=== PATIENT | female | born 1975 | race Caucasian/White ===

== ENCOUNTER 2023-02-03 08:45 | Outpatient (CLI) | payer OTHER, SELFPAY ==
[2023-02-03 08:56] LABS: Bacteria Urine Few; Mucus Urine Few; RBC Urine 0-2 (0-2); Squamous Epithelial Cell Urine Moderate (None-Few)
== END 2023-02-03 08:46 | disposition home or self-care (01) ==
PROVIDERS: PCP Physician Assistant Medical; Visit Provider Registered Nurse
DX: R30.0 Dysuria (principal)
CPT/HCPCS: 81015; 87086

== ENCOUNTER 2024-02-05 13:29 | Emergency (ER) | payer BC, SELFPAY ==
[2024-02-05 13:51] VITALS: BP 103/70; PULSE 67; RESP 18; TEMP 35.8; O2SAT 100; BMI 24.1
--- NOTE | 2024-02-05 14:11 | CRLHL7_ITS ---
For Patients: As a result of the Century Cures Act, medical imaging exams and procedure reports are released immediately into your electronic medical record. You may view this report before your referring provider. If you have questions, please contact your health care provider. INDICATION: Left lower quadrant abdomen and flank pain. TECHNIQUE: CT abdomen and pelvis acquired with 100 cc Omnipaque 350 IV contrast. COMPARISON: None. FINDINGS: Lower chest: Small hiatal hernia. Liver: A small hemangioma is in the right lobe. Otherwise unremarkable. Gallbladder and bile ducts: Unremarkable. No stones or inflammation. No biliary dilatation. Pancreas: Unremarkable. No mass or inflammation. Spleen: Unremarkable. Normal in size. No masses. Adrenal glands: Unremarkable. No nodules. Kidneys: Small 2 mm stone at the left ureterovesical junction on series 2, image 113 is causing mild hydronephrosis. No other stones. A benign-appearing cyst is in the right kidney. GI tract: Unremarkable. Normal in caliber. No sign of mass or inflammation. Normal appendix. Vasculature: Abdominal aorta is normal in caliber. Mesenteric arteries are patent. Lymph nodes: No lymphadenopathy. Peritoneum/Abdominal Wall: Unremarkable. No sign of mass or infiltration. No free air or significant free fluid. Pelvis: Unremarkable. Bones: Unremarkable for age. IMPRESSION: 2 mm stone at the left UVJ causing mild hydronephrosis. Please note that all CT scans at this facility use dose modulation, iterative reconstruction, and/or weight-based dosing when appropriate to reduce radiation dose to as low as reasonably achievable. Dictated by David Clayton MD @ 02/05/2024 4:32:02 PM (Electronically Signed)
[2024-02-05 14:14] LABS: Basophils Percent Auto 0.2 % (0.0-3.0); Eosinophils Percent Auto 0.2 % (0.0-7.0); Hematocrit 39.5 % (33.0-51.0); Hemoglobin* 13.3 gm/dL (12.0-16.0); Immature Granulocytes Pct Auto 0.3 %; Lymphocytes Percent Auto 9.9 % (20-44); Mean Corpuscular HGB Conc 34 gm/dL (32-36); Mean Corpuscular Hemoglobin 27 pg (26-34); Mean Corpuscular Volume 81 fL (80-100); Monocytes Percent Auto 4.5 % (0.0-11.0); Neutrophils Percent Auto 84.9 % (42.0-72.0); Platelet Count* 226 K/uL (140-440); RDW Coefficient of Variation % 12.6 % (11.5-15.5); Red Blood Count 4.87 m/uL (4.00-5.20); White Blood Count* 18.93 K/uL (4.50-11.00)
[2024-02-05] MEDS: KETOROLAC 15 MG/ML inj IVP (14:14)
[2024-02-05] MEDS: ONDANSETRON 2 MG/ML inj 4 MG IVP (14:14)
[2024-02-05 14:16] LABS: Slide Review Reflex No
[2024-02-05] MEDS: 0.9 % SODIUM CHLORIDE 1000 ml 1,000 ML IV (14:18)
--- NOTE | 2024-02-05 14:21 | ED_ITS ---
HPI - Abdominal Pain General Date Seen: 02/05/24 Chief Complaint: Abdominal Pain Stated Complaint: sharp left side pain, vomiting Time Seen by Provider: 02/05/24 14:04 Source: patient Mode of arrival: ambulatory Limitations: no limitations History of Present Illness HPI narrative: Patient is a 48-year-old female presenting to emergency department for left lower quadrant abdominal pain. She states she started having nausea this morning around 23:30 has vomited multiple times since then. Around 01/25/2030 she started having severe lower abdominal and left lower flank pain. States she has had kidney stones before but pain has never been like this. Describes as a stabbing sensation that is constant. Nothing seems to make the pain better or worse. Has had a small amount of urine but she feels like she always has to urinate more. Denies dysuria or hematuria. Feels chilled and dizzy but denies chest pain or shortness of breath. Has no objective fevers. Denies diarrhea, constipation, recent sick contacts. Is still feeling nauseated. Is not taking any medication for the nausea yet. States the pain is so bad she feels like it is going to make her pass out. Related Data Home Medications ?Medication ?Instructions ?Recorded ?Confirmed nitrofurantoin 1 cap PO BID 02/03/23 02/03/23 monohydrate/macrocrystals 100 mg capsule Previous Rx's ?Medication ?Instructions ?Recorded ketorolac 10 mg tablet 10 mg PO Q6H PRN pain #20 tabs 02/05/24 ondansetron 4 mg disintegrating 4 mg PO Q6H #20 tabs 02/05/24 tablet Allergies Allergy/AdvReac Type Severity Reaction Status Date / Time Penicillins AdvReac Intermediate Rash Verified 02/03/23 08:41 Review of Systems Status of ROS Reports: 10 or more systems reviewed and unremarkable except as noted in History and below Exam Narrative: Exam Narrative: Const: Well-nourished, Well-developed, in moderate distress Eyes: PERRL, no conjunctival injection, and symmetrical lids HENT: Atraumatic external nose and ears. Moist mucous membranes. Neck: Symmetric, trachea midline, No thyromegaly. CVS: RRR, No murmurs or gallops. Peripheral pulses 2+ and equal in all extremities RESP: Unlabored respiratory effort. Clear to auscultation bilaterally. GI: Left lower abdominal tenderness and left flank tenderness, Nondistended, No rebound or guarding. MSK:Extremities w/o deformity, Normal Active ROM Skin: Warm, Dry. No rashes or lesions. Neuro: Normal Muscle tone, No focal neurological deficits. Psych: Awake, Alert, & Oriented x3. Appropriate mood and affect. Const: Vital Signs, click to edit/add: Vital Signs - 24 hr 02/05/24 13:51 02/05/24 15:30 Temperature 96.4 F L Pulse Rate [Pulse Oximeter] 67 Respiratory Rate 18 Blood Pressure [Ri t Upper Arm] 103/70 128/74 Pulse Oximetry 100 Oxygen Delivery Me thod Room Air Course Vital Signs Vital signs: Initial Vital Signs Temperature 96.4 F L 02/05/24 13:51 Temperature Source Temporal Artery Scan 02/05/24 13:51 Pulse Rate 67 02/05/24 13:51 Pulse Rhythm Regular 02/05/24 13:51 Respiratory Rate 18 02/05/24 13:51 Blood Pressure 103/70 02/05/24 13:51 Blood Pressure Mean 81 02/05/24 13:51 Blood Pressure Position Sitting 02/05/24 13:51 Pulse Oximetry 100 02/05/24 13:51 Oxygen Delivery Method Room Air 02/05/24 13:51 Vital Signs Temperature 96.4 F L 02/05/24 13:51 Pulse Rate 67 02/05/24 13:51 Respiratory Rate 18 02/05/24 13:51 Blood Pressure 103/70 02/05/24 13:51 Pulse Oximetry 100 02/05/24 13:51 Oxygen Delivery Method Room Air 02/05/24 13:51 Temperature 96.4 F L 02/05/24 13:51 Pulse Rate 67 02/05/24 13:51 Respiratory Rate 18 02/05/24 13:51 Blood Pressure 128/74 02/05/24 15:30 Pulse Oximetry 100 02/05/24 13:51 Oxygen Delivery Method Room Air 02/05/24 13:51 Medications Administered Medications: Discontinued Medications Generic Name Dose Route Start Last Admin Trade Name Freq PRN Reason Stop Dose Admin Sodium Chloride 1,000 mls @ 1,000 mls/hr 02/05/24 14:15 02/05/24 16:02 0.9 % Sodium Chloride 1000 Ml IV 02/05/24 15:14 Infused .Q1H LAURYN Infusion Ketorolac Tromethamine 15 mg 02/05/24 14:11 02/05/24 14:14 Ketorolac 15 Mg/Ml Inj IVP 02/05/24 14:12 15 mg ONCE ONE Administration Ondansetron HCl 4 mg 02/05/24 14:11 02/05/24 14:14 Ondansetron 2 Mg/Ml Inj IVP 02/05/24 14:12 4 mg ONCE ONE Administration MDM - Abdominal Pain MDM Narrative Medical decision making narrative: Patient is a 48-year-old female presenting to emergency department for left flank pain and lower abdominal pain. She has had kidney stones before at this time differential includes he diverticulitis, pyelonephritis, nephrolithiasis. Seems unlikely to be related to neural dissection or aneurysm considering she is otherwise stable. Will give her Toradol for pain and Zofran for nausea. Also give her a L of fluids. CBC, BMP, urinalysis all ordered. Lab work returned showing a white count of 18. There are no other signs of infection at this time. Urinalysis shows blood but no signs of UTI. Symptoms fully resolved with the Toradol. CT scan reviewed by myself the radiologist shows a 2 mm left UVJ stone causing mild hydronephrosis. This time is no signs of an infected kidney stone. I do believe the elevated white count is due to her vomiting and is a stress reaction. She will be discharged at this time and she is agreeable to this plan. Will prescribe her Toradol and Zofran. Lab Data Labs: Lab Results 02/05/24 02/05/24 02/05/24 Range/Units 14:05 14:11 15:50 WBC 18.93 H (4.50-11.00) K/uL RBC 4.87 (4.00-5.20) m/uL Hgb 13.3 (12.0-16.0) gm/dL Hct 39.5 (33.0-51.0) % MCV 81 (80-100) fL MCH 27 (26-34) pg MCHC 34 (32-36) gm/dL RDW Coeff of Matthew 12.6 (11.5-15.5) % Plt Count 226 (140-440) K/uL Neut % (Auto) 84.9 H (42.0-72.0) % Lymph % (Auto) 9.9 L (20-44) % [place] % (Auto) 4.5 (0.0-11.0) % Eos % (Auto) 0.2 (0.0-7.0) % Baso % (Auto) 0.2 (0.0-3.0) % Neut # (Auto) 16.10 H (1.7-7.0) K/uL Lymph # (Auto) 1.90 (0.90-2.90) K/uL [place] # (Auto) 0.90 (0.00-0.90) K/UL Eos # (Auto) 0.00 (0.00-0.50) K/uL Baso # (Auto) 0.00 (0.00-0.30) K/uL Abs Immat Gran (auto) 0.10 (0.00-0.30) K/uL Imm/Tot Granulo (auto) 0.3 % Sodium 137 (135-149) mmol/L Potassium 3.5 L (3.6-5.1) mmol/L Chloride 103 (96-114) mmol/L Carbon Dioxide 24 (20-32) mmol/L Anion Gap 10 (7-15) mEq/L BUN 16 (5-24) mg/dL Creatinine 0.8 (0.5-1.5) mg/dL Estimated Creat Clear 78.23 Estimated GFR 91 ml/min Glucose 149 H (60-115) mg/dL Calcium 9.4 (8.4-10.6) mg/dL Total Bilirubin 0.6 (0.1-1.5) mg/dL Direct Bilirubin 0.2 (0.0-0.5) mg/dL AST 28 (12-35) U/L ALT 33 (4-35) U/L Alkaline Phosphatase 96 (40-150) U/L Total Protein 7.1 (6.0-8.3) g/dL Albumin 4.6 (3.3-5.0) g/dL Urine Color Yellow (Yellow) Urine Appearance Clear (Clear) Urine pH 7.0 (5.0-8.5) Ur Specific [place] 1.015 (1.000-1.030) Urine Protein Negative (Negative) Urine Glucose (UA) Negative (Negative) Urine Ketones 1+ A (Negative) Urine Blood 2+ A (Negative) Urine Nitrite Negative (Negative) Urine Bilirubin Negative (Negative) Urine Urobilinogen 0.2 (0.2-1.0) Ur Leukocyte Esterase Trace A (Negative) Urine RBC 10-25 A (0-2) Urine WBC 0-2 (0-5) Ur Squamous Epith Cells None (None-Few) Urine Bacteria None (None) Imaging Data CT scan abdomen and pelvis: Attestation: I have reviewed the pertinent imaging results. Radiologist's impression: 2 mm stone at the left UVJ causing mild hydronephrosis. Please note that all CT scans at this facility use dose modulation, iterative reconstruction, and/or weight-based dosing when appropriate to reduce radiation dose to as low as reasonably achievable. Dictated by David Clayton MD @ 02/05/2024 4:32:02 PM Discharge Plan Discharge Clinical Impression: Urolithiasis Qualifiers: Urinary calculus location: ureter Qualified Code(s): N20.1 - Calculus of ureter Patient Disposition: Home, Self-Care Condition: Improved Instructions: How to Strain Your Urine (ED) Additional Instructions: Take Tylenol and the Toradol as needed for pain. Take Zofran as needed for nausea. Return to emergency department for new or worsening symptoms. Prescriptions: New ketorolac 10 mg tablet 10 mg PO Q6H PRN (Reason: pain) Qty: 20 0RF Rx Instructions: maximum total duration of 5 days from all oral, intranasal, or parenteral formulations ondansetron 4 mg tablet,disintegrating 4 mg PO Q6H Qty: 20 0RF No Action nitrofurantoin monohyd/m-cryst 100 mg capsule 1 cap PO BID Follow Up/Referrals: Nelia Faulkner PA-C [Referring] - Stand Alone Forms: MyHealth Info Instructions
[2024-02-05 14:26] LABS: Chloride* 103 mmol/L (96-114); Potassium* 3.5 mmol/L (3.6-5.1); Sodium* 137 mmol/L (135-149)
[2024-02-05 14:29] LABS: Anion Gap 10 mEq/L (7-15); Carbon Dioxide* 24 mmol/L (20-32); Creatinine* 0.8 mg/dL (0.5-1.5); Est. Creatinine Clearance* 78.23; Estimated Glomerular Filt Rate 91 ml/min
[2024-02-05 14:30] LABS: Albumin* 4.6 g/dL (3.3-5.0)
[2024-02-05 14:30] LABS: Blood Urea Nitrogen* 16 mg/dL (5-24); Calcium* 9.4 mg/dL (8.4-10.6); Glucose* 149 mg/dL (60-115)
[2024-02-05 14:33] LABS: Alkaline Phosphatase* 96 U/L (40-150); Aspartate Amino Transferase* 28 U/L (12-35); Bilirubin Direct* 0.2 mg/dL (0.0-0.5); Bilirubin Total* 0.6 mg/dL (0.1-1.5); Total Protein* 7.1 g/dL (6.0-8.3)
[2024-02-05 14:34] LABS: Alanine Aminotransferase* 33 U/L (4-35)
[2024-02-05 15:30] VITALS: BP 128/74
[2024-02-05 15:58] LABS: Appearance Urine Clear (Clear); Bilirubin Urine Negative (Negative); Blood Urine 2+ (Negative); Color Urine Yellow (Yellow); Glucose Urine Negative (Negative); Ketones Urine 1+ (Negative); Leukocyte Esterase Urine Trace (Negative); Nitrite Urine Negative (Negative); Protein Urine Negative (Negative); Specific Gravity Urine 1.015 (1.000-1.030); Urobilinogen Urine 0.2 (0.2-1.0)
[2024-02-05 16:10] LABS: WBC Urine 0-2 (0-5)
[2024-02-05 16:48] VITALS: PULSE 68; RESP 16; O2SAT 98
== END 2024-02-05 16:51 | disposition home or self-care (01) ==
PROVIDERS: Emergency Provider Student in an Organized Health Care Education/Training Program
DX: N20.9 Urinary calculus, unspecified (principal)
CPT/HCPCS: 36415; 74177; 80048; 80076; 81001; 85025; 87086; 96361; 96374; 96375; 99284; 99285; J1885; J2405; J7030; Q9967